=== PATIENT | male | born 1945 | race Caucasian/White ===

== ENCOUNTER 2016-06-03 12:20 | Inpatient (IN) | payer OTHER ==
[~2016-06-03] VITALS: Ht 175.3 cm; Wt 84.1 kg
[~2016-06-03 12:20] MED LIST: ACET-1256 PO; AMLO-114 PO; BND25X PO; CHOL2000 PO; CNT PO; DOXY100C76 PO; FINA5TAB PO; FLM4 PO; FLUO0.0543 TOP; LPT/40 PO; METO25TA3 PO; MOME1AER5 INH; OMEP20CA9 PO; ONDA8TAB7 PO
[2016-06-03] MEDS ORDERED: SODIUM CHLORIDE 0.9% 1000ML 1,000 ML IV STA (12:44)
--- NOTE | 2016-06-03 12:51 | DIAGNOSTIC IMAGING REPORT ---
CHEST ONE VIEW PORTABLE CLINICAL HISTORY: fever COMPARISON STUDY: 12/19/2015 FINDINGS: The cardiac and mediastinal contours remain stable. Slightly prominent markings the right medial lung base remain unchanged. The findings likely reflect atelectasis/scarring. There is no failure. There is no lobar consolidation. There are no pleural effusions.[ IMPRESSION: Stable atelectasis/scarring at the right medial lung base. No acute findings. Electronically signed by: Durga Villa M.D. 06/03/2016 12:50 PM
[2016-06-03] MEDS ORDERED: CYNI1000 INJ (13:10)
[2016-06-03] MEDS ORDERED: IBRU1CAP PO (13:10)
[2016-06-03] MEDS ORDERED: ALBU18002 PO (13:10)
[2016-06-03] MEDS ORDERED: ALBUT/IPRATROP 3MG/0.5MG NEB 3 ML VIAL INH STA (13:16)
[2016-06-03 13:26] LABS: PROTHROMBIN TIME (PATIENT) 10.5 SECONDS (9.0-12.0)
[2016-06-03 13:35] LABS: BUN/CREATININE RATIO 13.3 (10-20); CALCIUM 8.5 mg/dl (8.5-10.1); CREATININE 1.7 mg/dl (0.60-1.40); MAGNESIUM 1.8 mg/dl (1.8-2.4); POTASSIUM 3.2 mmol/L (3.5-5.1)
[2016-06-03 13:43] LABS: HEMATOCRIT 31.1 % (42-52); MEAN CELL VOLUME 102.6 fL (80-100); MEAN CORPUSCULAR HEMOGLOBIN 32.7 pg (25-34); MEAN CORPUSCULAR HGB CONC 31.8 g/dl (32-36); MEAN PLATELET VOLUME 10.4 fL (7.4-10.4); PLATELET COUNT 75 K/uL (130-400); RED BLOOD COUNT 3.03 M/uL (4.7-6.1); WHITE BLOOD COUNT 113.47 K/uL (4.8-10.8)
[2016-06-03 13:45] LABS: CKMB/CK RATIO 0.2 (0-3.0)
[2016-06-03] MEDS ORDERED: LEVAQUIN 750MG / 150ML D5W IV STA (13:58)
[2016-06-03 14:03] LABS: BASO % 0.2 %; BASO ABS # 0.21 K/uL (0-0.2); COMPLETE YES; IG% 0.1 %; LYMPH % 97.5 %; MONO % 0.8 %; NEUT % 1.4 %; PLT ESTIMATE DECREASED; SMUDGE CELLS PRESENT
[2016-06-03] MEDS ORDERED: ONDANSETRON INJ 2 MG/ML 2 ML VIAL IV PRN (14:45)
[2016-06-03] MEDS ORDERED: MAGNESIUM HYDROXIDE SUSP 30 ML UDC PO PRN (14:45)
[2016-06-03] MEDS ORDERED: ALUMINUM/MAGNESIUM/SIMETH (MAALOX MAX) 30 ML UDC PO PRN (14:45)
[2016-06-03] MEDS ORDERED: SODIUM CHLORIDE 0.9% 1000ML 1,000 ML IV SCH (14:45)
[2016-06-03] MEDS ORDERED: ONDANSETRON 8 MG TAB PO PRN (14:45)
[2016-06-03] MEDS: ALBUTEROL HFA 8 GM INHALER INH SCH ×3 (16:00→19:46)
--- NOTE | 2016-06-03 16:34 | HISTORY & PHYSICAL EXAMINATION ---
DATE OF ADMISSION: 06/03/2016 CHIEF COMPLAINT: Fevers and chills. ADMITTING DIAGNOSES: 1. Febrile illness. 2. Positive troponin. HISTORY OF PRESENT ILLNESS: Mr. Garcia is a 71-year-old male who suffers from CLL, typically carrying a white count of 100,000 range. He is taking Imbruvica as a treatment for it. The patient reportedly has been feeling like he had the flu with cough, fever, some vomiting intermittently and not eating or drinking as much as he needs to. His primary care doctor's office this morning had a temperature of 103. He had a negative flu test at that time. The patient presented to the ER. Even though he took Tylenol, he did have an elevation of his temperature. He did have a flu shot additionally this year. He is currently resting comfortably. He has a nonproductive cough in the Emergency Department. He looks like he has got a flu, although he does have as much nasal drainages most. His chest x-ray is unremarkable for infiltrate. Urinalysis/Culture is pending. He was administered levofloxacin. 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 MEDICATIONS: On presentation are Tylenol, Norvasc 5 a day, Lipitor 40 a day, B12 injections once a week, and Benadryl as needed. He previously was on doxycycline daily, Proscar 5 a day, fluocinonide cream 0.05%, Toprol-XL 25 at bedtime, Multi-Melissa once a day, Zofran as needed for nausea, Flomax 0.4 a day, albuterol as needed for breathing, D3 at 2000 units a day, Imbruvica and Prilosec 20. He also takes Refresh Tears as he has had a recent bout of dry eyes. Not mentioned above, the patient also was being worked up for squamous cell carcinoma to his nose, neck and upper back. SOCIAL HISTORY: He does not smoke or drink, never had. He is retired from [employer]. He is accompanied by his . FAMILY HISTORY: For cancer and coronary artery disease. REVIEW OF SYSTEMS: Ten systems are reviewed and are negative except for as cold-like symptoms with nasal congestion, dry nonproductive cough, generalized weakness and arthralgias. PHYSICAL EXAMINATION: GENERAL: He is pleasant. He looks uncomfortable. VITAL SIGNS: Temperature 38.1, pulse 84, respirations 18, BP 131/69, and O2 sat 93% on room air. HEENT: Both his ears are occluded with cerumen. His oropharynx is mildly erythematous without exudates. NECK: With trachea midline. No significant lymphadenopathy. HEART: Regular. There are no significant murmurs. LUNGS: Clear with a coarse cough. No wheezes or focal air losses. ABDOMEN: Normoactive bowel sounds. Soft and nontender. No bruits. EXTREMITIES: Without cyanosis, clubbing or edema. SKIN: With what looked to be abrased scaly areas, 1 on the bridge of his nose and multiple others on his neck and upper back, but there are the sites he has had biopsies and more excisional biopsy done for squamous cell carcinoma. NEUROLOGICALLY: He is awake, alert and appropriate. Cranial nerves II-XII are intact. Equal symmetrical strength and sensation. LABORATORY DATA: White count 113, H\T\H is 9 and 31, and platelet count 75. Potassium is slightly low at 3.2. BUN and creatinine are 23 and 1.7. Troponin slightly elevated at 0.051. Chest x-ray shows no infiltrates. Flu is negative. ASSESSMENT: This is a 71-year-old male here with chronic lymphocytic leukemia, who was essentially immunosuppressed with a febrile illness and a positive troponin. PLAN: For febrile illness, he was already given levofloxacin and blood cultures were obtained. We will continue levofloxacin orally. The patient looks like he has influenza. He has some exposure to influenza. Therefore, we will actually give him the Tamiflu despite having a negative influenza swab because there was a significant false negative rate. With the pancytopenia, this is definitely from his CLL. We will watch his counts. We will not employ DVT prevention because of his thrombocytopenia. Regarding his chronic kidney disease, stage III and hypokalemia, we will hydrate him with saline containing potassium for 1 liter in addition to a liter he received in the ER. We will reassess his volume status in the morning. Regarding his medication for his CLL, we will continue this at this time, but may consider holding it. Somehow, his duration of hospital stay depends on his resolution of his symptoms. DVT prevention is early ambulation at this time. For his cardiovascular disease, we will maintain his Toprol and Norvasc holding his Lipitor at this time. MARION
[2016-06-03 17:00] VITALS: BP 167/80; PULSE 88; TEMP 39.4; O2SAT 96; Ht 175.3 cm; Wt 84.1 kg
[2016-06-03] MEDS ORDERED: ACETAMINOPHEN 500 MG TAB PO PRN (17:45)
[2016-06-03] MEDS ORDERED: ACETAMINOPHEN IV 650 MG in EMPTY BAG 0 ML IV PRN (17:45)
[2016-06-03 18:19] LABS: URINE APPEARANCE CLEAR (CLEAR); URINE BILIRUBIN NEG (NEG); URINE COLOR YELLOW; URINE NITRITE NEG (NEG); URINE SPECIFIC GRAVITY 1.019 (1.000-1.030); UROBILINOGEN NEG (NEG); ZZUR CULT IF INDIC CLEAN CATCH NO
[2016-06-03 18:20] LABS: MANUAL MICROSCOPIC REQUIRED? NO; REVIEW REQ? NO
[2016-06-03] MEDS: ARTIFICIAL TEARS OP SOLN OP SCH ×4 (19:13→23:11)
[2016-06-03] MEDS: POTASSIUM CHLORIDE INJ 40 MEQ in SODIUM CHLORIDE 0.9% 1000ML 1,000 ML IV SCH (19:17)
[2016-06-03 19:44] VITALS: BP 141/79; PULSE 86; TEMP 39.2; O2SAT 93
--- NOTE | 2016-06-03 20:12 | EMERGENCY ROOM VISIT NOTE ---
History Report prepared by Tracey: Ana María Caal Under the Supervision of: Dr. Eddie Gamboa M.D. First contact with patient: 12:35 Chief Complaint: FLU LIKE SX Stated Complaint: COLD, FLU , FEVER History of Present Illness The patient is a 71 year old male who presents to the Emergency Room with complaints of worsening flu-like symptoms for the past 4 days. He has been experiencing a cough and fever. He had vomiting a few days ago that has resolved. The patient rates his pain as a 7/10. He has not been eating or drinking much. He went to his PCP this morning and had a fever with a temperature of 103 at the office. He had a negative flu test at that time. She advised the patient to come to the ED for further evaluation. He took Tylenol 1 hour [employer]. The patient is currently receiving chemo for CLL. He did have a flu shot this year. Source of History: patient, spouse/significant other Onset: 4 days ago Position: other (global) Symptom Intensity: 7/10 Quality: other (flu-like) Timing: worsening Modifying Factors (Relieving): tylenol Associated Symptoms: + cough, + fevers Review of Systems See HPI for pertinent positives & negatives. A total of 10 systems reviewed and were otherwise negative. Past Medical & Surgical Medical Problems: (1) Aneurysm, thoracic (2) BPH (3) CLL (4) DVT (deep venous thrombosis) (5) Febrile illness (6) Hypertension (7) Intracranial hemorrhage (8) Neutropenia (9) Parkinson's disease (10) PE (pulmonary embolism) (11) PNA (pneumonia) (12) Pneumonia (13) Schnitzler syndrome Surgical Problems: (1) History of herniorrhaphy Family History Cancer Heart disease Social History Smoking Status: Never Smoker Drug Use: none Marital Status: Housing Status: lives with family Occupation Status: disabled Current/Historical Medications Scheduled Acetaminophen (Tylenol), 1,000 MG PO Q6HR Albuterol Sulfate (Proair Respiclick), 2 PUFFS PO Q4 Amlodipine (Norvasc), 5 MG PO DAILY Atorvastatin (Lipitor), 40 MG PO DAILY Cholecalciferol (Vitamin D3), 1 CAP PO DAILY Cyanocobalamin (Cyanocobalamin), 1 ML INJ MONTHLY Diphenhydramine Hcl (Benadryl *), 50 MG PO Q6HR Doxycycline Monohydrate (Monodox), 200 MG PO DAILY Finasteride (Proscar), 5 MG PO DAILY Fluocinonide 0.05% (Lidex 0.05%), 1 APPLN TOP BID Ibrutinib (Imbruvica), 3 TABS PO DAILY Metoprolol Succinate (Toprol Xl), 25 MG PO HS Multivitamins/Minerals (Certavite/Antioxidants), 1 TAB PO QAM Omeprazole (Prilosec), 20 MG PO DAILY Tamsulosin Hcl (Flomax *), 0.4 MG PO QPM Scheduled PRN Ondansetron Tab (Zofran), 8 MG PO Q6 PRN for Nausea Allergies Coded Allergies: Dried Fruit (Verified Allergy, Unknown, ., 06/03/16) Physical Exam Vital Signs Date Time Temp Pulse Resp B/P Pulse Ox O2 Delivery O2 Flow Rate FiO2 06/03/16 13:30 94 20 128/79 94 Room Air 06/03/16 12:59 84 06/03/16 12:28 38.1 97 18 131/69 93 Room Air Physical Exam GENERAL: Patient is mildly confused and tired appearing. Weakness with sitting up. HEENT: No acute trauma, normocephalic atraumatic, mucous membranes moist, no nasal congestion, no scleral icterus. NECK: No stridor, no adenopathy, no meningismus, trachea is midline. LUNGS: Productive cough. Junky lung sounds at bases. No dyspnea. HEART: Mildly tachycardic rate and regular rhythm. No murmurs, rubs, gallops appreciated. ABDOMEN: Soft, nontender, bowel sounds positive, no masses appreciated, no peritonitis. BACK: No midline tenderness, no CVA tenderness EXTREMITIES: Normal motion all extremities, no cyanosis, no edema. NEUROLOGIC: Alert and oriented, no acute motor or sensory deficits, no focal weakness, cranial nerves grossly intact. SKIN: No rash, no jaundice, no diaphoresis. Medical Decision & Procedures ER Provider Diagnostic Interpretation: Radiology results as stated below per my review and radiologist interpretation: CHEST ONE VIEW PORTABLE CLINICAL HISTORY: fever COMPARISON STUDY: 12/19/2015 FINDINGS: The cardiac and mediastinal contours remain stable. Slightly prominent markings the right medial lung base remain unchanged. The findings likely reflect atelectasis/scarring. There is no failure. There is no lobar consolidation. There are no pleural effusions.[ IMPRESSION: Stable atelectasis/scarring at the right medial lung base. No acute findings. Electronically signed by: Durga Villa M.D. 06/03/2016 12:50 PM Laboratory Results 06/03/16 13:03 Red Blood Count 3.03, Mean Corpuscular Volume 102.6, Mean Corpuscular Hemoglobin 32.7, Mean Corpuscular Hemoglobin Concent 31.8, Mean Platelet Volume 10.4, Neutrophils (%) (Auto) 1.4, Lymphocytes (%) (Auto) 97.5, Monocytes (%) ( Auto) 0.8, Eosinophils (%) (Auto) 0.0, Basophils (%) (Auto) 0.2, Neutrophils # ( Auto) 1.69, Lymphocytes # (Auto) 110.60, Monocytes # (Auto) 0.89, Eosinophils # (Auto) 0.02, Basophils # (Auto) 0.21 06/03/16 13:03 Test 06/03/16 12:35 06/03/16 13:03 06/03/16 13:14 Influenza Type A Antigen Neg for Influ A (NEG) Influenza Type B Antigen Neg for Influ B (NEG) White Blood Count 113.47 K/uL (4.8-10.8) Red Blood Count 3.03 M/uL (4.7-6.1) Hemoglobin 9.9 g/dL (14.0-18.0) Hematocrit 31.1 % (42-52) Mean Corpuscular Volume 102.6 fL (80-100) Mean Corpuscular Hemoglobin 32.7 pg (25-34) Mean Corpuscular Hemoglobin Concent 31.8 g/dl (32-36) Platelet Count 75 K/uL (130-400) Mean Platelet Volume 10.4 fL (7.4-10.4) Neutrophils (%) (Auto) 1.4 % Lymphocytes (%) (Auto) 97.5 % Monocytes (%) (Auto) 0.8 % Eosinophils (%) (Auto) 0.0 % Basophils (%) (Auto) 0.2 % Neutrophils # (Auto) 1.69 K/uL (1.4-6.5) Lymphocytes # (Auto) 110.60 K/uL (1.2-3.4) Monocytes # (Auto) 0.89 K/uL (0.11-0.59) Eosinophils # (Auto) 0.02 K/uL (0-0.5) Basophils # (Auto) 0.21 K/uL (0-0.2) RDW Standard Deviation 53.4 fL (36.4-46.3) RDW Coefficient of Variation 14.8 % (11.5-14.5) Immature Granulocyte % (Auto) 0.1 % Immature Granulocyte # (Auto) 0.06 K/uL (0.00-0.02) Smudge Cells PRESENT Platelet Estimate DECREASED Prothrombin Time 10.5 SECONDS (9.0-12.0) Prothromb Time International Ratio 1.0 (0.9-1.1) Anion Gap 9.0 mmol/L (3-11) Est Creatinine Clear Calc Drug Dose 41.2 ml/min Estimated GFR () 45.7 Estimated GFR (Non- 39.4 BUN/Creatinine Ratio 13.3 (10-20) Calcium Level 8.5 mg/dl (8.5-10.1) Magnesium Level 1.8 mg/dl (1.8-2.4) Total Bilirubin 1.1 mg/dl (0.2-1) Direct Bilirubin 0.3 mg/dl (0-0.2) Aspartate Amino Transf (AST/SGOT) 31 U/L (15-37) Alanine Aminotransferase (ALT/SGPT) 24 U/L (12-78) Alkaline Phosphatase 61 U/L (45-117) Total Creatine Kinase 389 U/L (39-308) Creatine Kinase MB 0.9 ng/ml (0.5-3.6) Creatine Kinase MB Ratio 0.2 (0-3.0) Total Protein 6.3 gm/dl (6.4-8.2) Albumin 3.2 gm/dl (3.4-5.0) Bedside Lactic Acid Venous 0.82 mmol/L (0.90-1.70) Laboratory results as reviewed by me. Medications Administered Medications (Trade) Dose Ordered Sig/Brian Route Start Time Stop Time Status Last Admin Dose Admin Sodium Chloride (Nss 1000ml) 1,000 ml @ 999 mls/hr Q1H1M STAT IV 06/03/16 12:44 06/03/16 13:44 DC 06/03/16 13:21 999 MLS/HR Albuterol/ Ipratropium (Duoneb) 3 ml NOW STAT INH 06/03/16 13:16 06/03/16 13:17 DC 06/03/16 13:32 3 ML Levofloxacin (Levaquin / D5w) 750 mg NOW STAT IV 06/03/16 13:58 06/03/16 13:59 DC 06/03/16 15:16 750 MG ECG Indication: other Rate (beats per minute): 95 Rhythm: sinus rhythm Findings: PVC, ST depression ED Course 1235: The patient was evaluated in room C5. A complete history and physical exam was performed. 1244: NSS 1000 ml @ 999 mls/hr IV 1316: Duoneb 3 ml INH 1358: Levofloxacin 750 mg IV 1400: I spoke with Dr. Jean. We discussed the patient's results and treatment plan. The patient will be evaluated by the [facility] for further management. 1403: I reassessed the patient at this time. He is resting comfortably. I discussed the results and treatment plan with the patient. I answered all pertaining questions that he had. He expressed understanding and verbalized agreement. Medical Decision Differential: Viral, Pharyngitis, Cellulitis, Pneumonia, Influenza, Meningitis, Sepsis, Bacteremia, UTI/Pyelonephritis, Endocrine, Toxicologic, amongst other pathologies entertained. 71 yr old male arrives with fevers, shortness of breath and productive cough. He is mildly confused but of more concern is he is clearly quite dehydrated. WBC similar to previous outpatient [facility] labs. He does not have meningitis by examination. With cough I feel this is lung related and Levaquin given. He furthermore has an elevated Trop when previously it has been negative thus I feel this will need to be trended out as well. He is stable otherwise. Consults Time Called: 1358 Consulting Physician: Dr. Jean Returned Call: [address] Jean. We discussed the patient's results and treatment plan. The patient will be evaluated by the [facility] for further management. Impression Primary Impression: Fever Additional Impressions: Acute bronchitis, Elevated troponin, CLL Scribe Attestation The scribe's documentation has been prepared under my direction and personally reviewed by me in its entirety. I confirm that the note above accurately reflects all work, treatment, procedures, and medical decision making performed by me. Departure Information Dispostion Being Evaluated By Hospitalist Referrals Leanne Tracy C.R.N.P (PCP) Patient Instructions A Signature Page, My [facility]
[2016-06-03] MEDS: GUAIFENESIN SUGAR FREE 100 MG/5 ML UDC PO PRN (20:16)
[2016-06-03] MEDS: CARBAMIDE PEROXIDE 6.5% 15 ML BTL OT SCH (20:17)
[2016-06-03] MEDS: FLUOCINONIDE 0.05% OINT 15 GM TUBE EXT SCH (20:18)
[2016-06-03] MEDS: ACETAMINOPHEN 500 MG TAB PO SCH (20:19)
[2016-06-03] MEDS: TAMSULOSIN HCL 0.4 MG CAP PO SCH (20:20)
[2016-06-03] MEDS: METOPROLOL SUCC 25MG EXT REL TAB PO SCH (20:20)
[2016-06-03] MEDS: OSELTAMIVIR PHOSPHATE SUSP 30 MG/5 ML UDP PO SCH (20:21)
[2016-06-03 21:18] VITALS: TEMP 37.5
[2016-06-04] VITALS (14 sets, daily range): BP systolic 115–143; BP diastolic 67–83; PULSE 64–82; TEMP 36.4–38.2; O2SAT 91–97
[2016-06-04] MEDS: ALBUTEROL HFA 8 GM INHALER INH SCH ×5 (00:01→20:00)
[2016-06-04] MEDS: GUAIFENESIN SUGAR FREE 100 MG/5 ML UDC PO PRN ×3 (03:08→22:30)
[2016-06-04] MEDS ORDERED: LEVALBUTEROL 1.25MG/0.5ML NEB INH PRN (04:30)
[2016-06-04] MEDS ORDERED: IPRATROPIUM BROMIDE NEB SOLN 0.02% 2.5 ML VIAL INH PRN (04:30)
[2016-06-04] MEDS: POTASSIUM CHLORIDE INJ 40 MEQ in SODIUM CHLORIDE 0.9% 1000ML 1,000 ML IV SCH ×2 (04:52→15:26)
[2016-06-04] MEDS: ARTIFICIAL TEARS OP SOLN OP SCH ×10 (05:48→23:00)
[2016-06-04 06:20] LABS: HEMATOCRIT 29.8 % (42-52); MEAN CELL VOLUME 104.6 fL (80-100); MEAN CORPUSCULAR HEMOGLOBIN 32.6 pg (25-34); MEAN CORPUSCULAR HGB CONC 31.2 g/dl (32-36); MEAN PLATELET VOLUME 10.8 fL (7.4-10.4); PLATELET COUNT 66 K/uL (130-400); RED BLOOD COUNT 2.85 M/uL (4.7-6.1); WHITE BLOOD COUNT 99.17 K/uL (4.8-10.8)
[2016-06-04 06:45] LABS: BUN/CREATININE RATIO 10.7 (10-20); CREATININE 1.6 mg/dl (0.60-1.40); POTASSIUM 3.3 mmol/L (3.5-5.1)
[2016-06-04] MEDS: IPRATROPIUM BROMIDE NEB SOLN 0.02% 2.5 ML VIAL INH SCH ×3 (06:57→19:04)
[2016-06-04] MEDS: LEVALBUTEROL 1.25MG/0.5ML NEB INH SCH ×3 (07:32→19:04)
[2016-06-04] MEDS ORDERED: POTASSIUM CHLORIDE 10 MEQ TABCR PO ONE (08:15)
[2016-06-04] MEDS ORDERED: LEVALBUTEROL/IPRATROPIUM NEB INH SCH (09:00)
[2016-06-04] MEDS: CARBAMIDE PEROXIDE 6.5% 15 ML BTL OT SCH ×2 (09:12→20:52)
[2016-06-04] MEDS: FINASTERIDE 5 MG TAB PO SCH (09:13)
[2016-06-04] MEDS: PANTOprazole SOD 40 MG TAB PO SCH (09:13)
[2016-06-04] MEDS: OSELTAMIVIR PHOSPHATE SUSP 30 MG/5 ML UDP PO SCH ×2 (09:13→20:54)
[2016-06-04] MEDS: AMLODIPINE BESYLATE 5 MG TAB PO SCH (09:13)
[2016-06-04] MEDS: FLUOCINONIDE 0.05% OINT 15 GM TUBE EXT SCH ×2 (09:13→20:54)
[2016-06-04] MEDS ORDERED: NURSING VERBAL MED ORDER ONE (09:15)
[2016-06-04] MEDS ORDERED: METHYLPREDNISOLONE IV 60 MG in SYRINGE 0 ML IV ONE (09:15)
[2016-06-04] MEDS: ACETAMINOPHEN 500 MG TAB PO SCH ×2 (09:16→20:53)
[2016-06-04] MEDS ORDERED: GUAIFENESIN 600 MG TABCR PO ONE (09:30)
--- NOTE | 2016-06-04 10:44 | DIAGNOSTIC IMAGING REPORT ---
CHEST ONE VIEW PORTABLE CLINICAL HISTORY: Congestive failure COMPARISON STUDY: 06/03/2016 FINDINGS: The cardiac and mediastinal contours are normal. There is no evidence of focal pulmonary consolidation. There is no evidence of failure. No pleural effusions are visualized.[ There are minimal subsegmental atelectatic changes at the left lung base. IMPRESSION: No active disease in the chest. Electronically signed by: Durga Villa M.D. 06/04/2016 10:43 AM
[2016-06-04] MEDS: LEVOFLOXACIN 500 MG TAB PO SCH (11:16)
--- NOTE | 2016-06-04 14:56 | Progress Note ---
Subjective Subjective Date of Service: Jun 04, 2016. Pt evaluation today including: conversation w/ patient, physical exam, chart review, review of studies, review of inpatient medication list Problem List Medical Problems: (1) Acute bronchitis Status: Acute (2) Chest pain Status: Acute (3) Elevated d-dimer Status: Acute (4) Elevated troponin Status: Acute (5) Fever Status: Acute Review of Systems Constitutional: + chills ENT: No hearing loss Respiratory: No cough Abdomen: No pain Musculoskeletal: No joint pain Male : No urinary frequency Neurologic: No memory loss Psychiatric: No depression symptoms Endo: No fatigue Physical Exam Vital Signs Vital Signs Past 24 Hours: Date Time Temp Pulse Resp B/P Pulse Ox O2 Delivery O2 Flow Rate FiO2 06/04/16 14:17 80 18 96 Room Air 06/04/16 12:00 Nasal Cannula 2.0 06/04/16 11:12 36.9 64 19 116/68 93 Room Air 06/04/16 08:00 Nasal Cannula 2.0 06/04/16 07:40 37.3 81 22 118/67 95 06/04/16 06:57 82 18 93 Room Air 06/04/16 06:19 37.6 06/04/16 05:30 38.2 06/04/16 04:29 80 18 93 Room Air 06/04/16 03:33 37.3 75 18 130/83 95 Room Air 06/04/16 00:04 36.6 80 18 133/74 97 Nasal Cannula 06/04/16 00:02 Nasal Cannula 2.0 06/03/16 21:18 37.5 06/03/16 20:04 Nasal Cannula 2.0 06/03/16 19:44 39.2 86 18 141/79 93 Nasal Cannula 2.0 06/03/16 17:00 96 Nasal Cannula 2.0 06/03/16 17:00 39.4 88 26 167/80 06/03/16 15:14 81 20 147/77 94 Room Air Physical Exam: General Appearance: WD/WN, no apparent distress, + pertinent finding (clammy) Eyes: bilateral eyes normal inspection ENT: hearing grossly normal, pharynx normal Neck: supple Respiratory/Chest: chest non-tender, + rales Cardiovascular: no edema, no gallop Abdomen: soft Extremities: normal range of motion, normal inspection Neurologic/Psychiatric: alert Medications Medications: Current Inpatient Medications Medications (Trade) Dose Ordered Sig/Brian Route Start Time Stop Time Status Last Admin Dose Admin Acetaminophen (Tylenol Tab) 1,000 mg BID PO 06/03/16 21:00 07/03/16 20:59 06/04/16 09:16 1,000 MG Amlodipine Besylate (Norvasc Tab) 5 mg DAILY PO 06/04/16 09:00 07/04/16 08:59 06/04/16 09:13 5 MG Diphenhydramine HCl (Benadryl Cap) 50 mg Q6 PRN PO 06/03/16 14:45 07/03/16 14:44 Finasteride (Proscar Tab) 5 mg DAILY PO 06/04/16 09:00 07/04/16 08:59 06/04/16 09:13 5 MG Fluocinonide (Lidex Oint) 1 appln BID EXT 06/03/16 21:00 07/03/16 20:59 06/04/16 09:13 1 APPLN Metoprolol Succinate (Toprol Xl Tab) 25 mg HS PO 06/03/16 21:00 07/03/16 20:59 06/03/16 20:20 25 MG Ondansetron HCl (Zofran Tab) 8 mg Q6 PRN PO 06/03/16 14:45 07/03/16 14:44 Tamsulosin HCl (Flomax Cap) 0.4 mg QPM PO 06/03/16 21:00 07/03/16 20:59 06/03/16 20:20 0.4 MG Albuterol (Ventolin Hfa Inhaler) 2 puffs Q4 INH 06/03/16 16:00 07/03/16 15:59 06/04/16 03:08 2 PUFFS Pantoprazole Sodium (Protonix Tab) 40 mg QAM PO 06/04/16 09:00 07/04/16 08:59 06/04/16 09:13 40 MG Al Hydrox/Mg Hydrox/Simethicone (Maalox Max Susp) 15 ml Q4H PRN PO 06/03/16 14:45 07/03/16 14:44 Magnesium Hydroxide (Milk Of Magnesia Susp) 30 ml Q12H PRN PO 06/03/16 14:45 07/03/16 14:44 Ondansetron HCl (Zofran Inj) 4 mg Q6H PRN IV 06/03/16 14:45 07/03/16 14:44 Oseltamivir Phosphate (Tamiflu Susp) 30 mg BID PO 06/03/16 21:00 06/08/16 20:59 06/04/16 09:13 30 MG Levofloxacin (Levaquin Tab) 500 mg DAILY@11 PO 06/04/16 11:00 06/13/16 10:59 06/04/16 11:16 500 MG Guaifenesin (Robitussin Sugar Free Syrup) 100 mg Q6H PRN PO 06/03/16 15:15 07/03/16 15:14 06/04/16 09:12 100 MG Artificial Tears (Artificial Tears) 4 drops [id number] OP 06/03/16 19:00 07/03/16 18:59 06/04/16 11:16 4 DROPS Carbamide Peroxide 4 drops 4 drops BID OT 06/03/16 21:00 06/07/16 20:59 06/04/16 09:12 4 DROPS Potassium Chloride/Sodium Chloride (KCl Inj/Nss 1000ml) 1,020 ml @ 100 mls/hr [id number] IV 06/03/16 19:00 07/03/16 18:59 06/04/16 04:52 100 MLS/HR Acetaminophen 1000 mg 1,000 mg Q6H PRN PO 06/03/16 17:45 07/03/16 17:44 Acetaminophen/ Empty Bag (Ofirmev IV/ Empty Iv Bag 100ml) 65 ml @ 260 mls/hr Q6H PRN IV 06/03/16 17:45 07/03/16 17:44 06/04/16 05:35 260 MLS/HR Ipratropium [place] (Atrovent 0.02% 0.5MG/2.5ML Neb) 0.5 mg Q6R INH 06/04/16 09:00 07/04/16 08:59 06/04/16 14:17 0.5 MG Levalbuterol (Xopenex 1.25MG/ 0.5ML Neb) 1.25 mg Q6R INH 06/04/16 09:00 07/04/16 08:59 06/04/16 14:17 1.25 MG Ipratropium [place] (Atrovent 0.02% 0.5MG/2.5ML Neb) 0.5 mg Q2H PRN INH 06/04/16 04:30 07/04/16 04:29 06/04/16 04:30 0.5 MG Levalbuterol (Xopenex 1.25MG/ 0.5ML Neb) 1.25 mg Q2H PRN INH 06/04/16 04:30 07/04/16 04:29 06/04/16 04:30 1.25 MG Guaifenesin (Mucinex Contr Rel Tab) 600 mg Q12@0900,2100 PO 06/04/16 21:00 07/04/16 20:59 Laboratory Data Labs: Last 24 Hours Test 06/03/16 17:55 06/03/16 19:57 06/04/16 05:15 Urine Color YELLOW Urine Appearance CLEAR Urine pH 6.0 Urine Specific Cecil 1.019 Urine Protein 2+ Urine Glucose (UA) NEG Urine Ketones TRACE Urine Occult Blood 3+ Urine Nitrite NEG Urine Bilirubin NEG Urine Urobilinogen NEG Urine Leukocyte Esterase NEG Urine WBC (Auto) 5-10 /hpf Urine RBC (Auto) >30 /hpf Urine Hyaline Casts (Auto) 1-5 /lpf Urine Epithelial Cells (Auto) 10-20 /lpf Urine Bacteria (Auto) NEG Troponin I 0.066 ng/ml 0.046 ng/ml White Blood Count 99.17 K/uL Red Blood Count 2.85 M/uL Hemoglobin 9.3 g/dL Hematocrit 29.8 % Mean Corpuscular Volume 104.6 fL Mean Corpuscular Hemoglobin 32.6 pg Mean Corpuscular Hemoglobin Concent 31.2 g/dl RDW Standard Deviation 56.4 fL RDW Coefficient of Variation 15.1 % Platelet Count 66 K/uL Mean Platelet Volume 10.8 fL Sodium Level 141 mmol/L Potassium Level 3.3 mmol/L Chloride Level 110 mmol/L Carbon Dioxide Level 22 mmol/L Anion Gap 9.0 mmol/L Blood Urea Nitrogen 17 mg/dl Creatinine 1.60 mg/dl Est Creatinine Clear Calc Drug Dose 41.8 ml/min Estimated GFR () 49.2 Estimated GFR (Non- 42.4 BUN/Creatinine Ratio 10.7 Random Glucose 100 mg/dl Calcium Level 8.0 mg/dl Assessment and Plan This is a 71-year-old male here with chronic lymphocytic leukemia, who was essentially immunosuppressed with a febrile illness and a positive troponin. febrile illness, he was already given levofloxacin and blood cultures were obtained. We will continue levofloxacin orally until cultures are back. CXR is normal The patient looks like he has influenza. He has some exposure to influenza. Therefore, we will actually give him the Tamiflu despite having a negative influenza swab because there was a significant false negative rate. With the pancytopenia, this is definitely from his CLL. We will watch his counts. We will not employ DVT prevention because of his thrombocytopenia. consult Dr Garcia Regarding his chronic kidney disease, stage III and hypokalemia, cont IV hydration HX CLL, will hold outpatient regimen and will d/w oncologist DVT prevention is early ambulation at this time. For his cardiovascular disease, continue Toprol and Norvasc holding his Lipitor at this time. FULL Code
[2016-06-04] MEDS: IBRUTINIB 140 MG CAP PO SCH (15:01)
[2016-06-04] MEDS: TAMSULOSIN HCL 0.4 MG CAP PO SCH (20:52)
[2016-06-04] MEDS: GUAIFENESIN 600 MG TABCR PO SCH (20:53)
[2016-06-04] MEDS: METOPROLOL SUCC 25MG EXT REL TAB PO SCH (20:57)
[2016-06-05] VITALS (12 sets, daily range): BP systolic 128–158; BP diastolic 68–84; PULSE 65–83; TEMP 36.3–36.7; O2SAT 93–98
[2016-06-05] MEDS: POTASSIUM CHLORIDE INJ 40 MEQ in SODIUM CHLORIDE 0.9% 1000ML 1,000 ML IV SCH (02:02)
[2016-06-05] MEDS: LEVALBUTEROL 1.25MG/0.5ML NEB INH SCH ×4 (02:14→19:42)
[2016-06-05] MEDS: IPRATROPIUM BROMIDE NEB SOLN 0.02% 2.5 ML VIAL INH SCH ×4 (02:14→19:42)
[2016-06-05] MEDS: ALBUTEROL HFA 8 GM INHALER INH SCH ×6 (04:00→20:00)
[2016-06-05 06:38] LABS: BUN/CREATININE RATIO 12.6 (10-20); CALCIUM 7.8 mg/dl (8.5-10.1); CREATININE 1.3 mg/dl (0.60-1.40); POTASSIUM 4.6 mmol/L (3.5-5.1)
[2016-06-05] MEDS: FINASTERIDE 5 MG TAB PO SCH (08:31)
[2016-06-05] MEDS: ACETAMINOPHEN 500 MG TAB PO SCH ×2 (08:32→20:23)
[2016-06-05] MEDS: PANTOprazole SOD 40 MG TAB PO SCH (08:32)
[2016-06-05] MEDS: AMLODIPINE BESYLATE 5 MG TAB PO SCH (08:32)
[2016-06-05] MEDS: FLUOCINONIDE 0.05% OINT 15 GM TUBE EXT SCH ×2 (08:32→20:22)
[2016-06-05] MEDS: GUAIFENESIN 600 MG TABCR PO SCH ×2 (08:33→20:23)
[2016-06-05] MEDS: CARBAMIDE PEROXIDE 6.5% 15 ML BTL OT SCH ×2 (08:33→22:05)
[2016-06-05] MEDS: IBRUTINIB 140 MG CAP PO SCH ×2 (08:33→09:00)
[2016-06-05] MEDS: ARTIFICIAL TEARS OP SOLN OP SCH ×10 (08:33→23:00)
[2016-06-05] MEDS: OSELTAMIVIR PHOSPHATE SUSP 30 MG/5 ML UDP PO SCH ×2 (08:34→08:38)
[2016-06-05 08:58] LABS: HEMATOCRIT 27.9 % (42-52); MEAN CELL VOLUME 103.3 fL (80-100); MEAN CORPUSCULAR HEMOGLOBIN 32.2 pg (25-34); MEAN CORPUSCULAR HGB CONC 31.2 g/dl (32-36); MEAN PLATELET VOLUME 11.5 fL (7.4-10.4); PLATELET COUNT 67 K/uL (130-400); WHITE BLOOD COUNT 96.66 K/uL (4.8-10.8)
[2016-06-05 09:32] LABS: BASO % 0.2 %; BASO ABS # 0.15 K/uL (0-0.2); COMPLETE YES; ECHINOCYTES 1+; LYMPH % 97.1 %; MONO % 0.7 %; SMUDGE CELLS PRESENT
[2016-06-05] MEDS ORDERED: NURSING VERBAL MED ORDER ONE ×2 (11:15→19:00)
[2016-06-05] MEDS: LEVOFLOXACIN 500 MG TAB PO SCH (11:17)
--- NOTE | 2016-06-05 12:53 | Progress Note ---
Subjective Subjective Date of Service: Jun 05, 2016. Pt evaluation today including: conversation w/ patient, physical exam, chart review, review of studies, review of inpatient medication list Notes: patient feels improved Problem List Medical Problems: (1) Acute bronchitis Status: Acute (2) Chest pain Status: Acute (3) Elevated d-dimer Status: Acute (4) Elevated troponin Status: Acute (5) Fever Status: Acute Review of Systems Constitutional: No fever Eyes: No worsening of vision ENT: No hearing loss Respiratory: No cough Cardiac: No chest pain Abdomen: No pain Male : No dysuria Neurologic: No memory loss Psychiatric: No depression symptoms Endo: + fatigue Physical Exam Vital Signs Vital Signs Past 24 Hours: Date Time Temp Pulse Resp B/P Pulse Ox O2 Delivery O2 Flow Rate FiO2 06/05/16 11:38 36.3 71 18 128/72 96 Room Air 06/05/16 08:00 Room Air 06/05/16 07:39 36.5 67 20 155/82 97 Room Air 06/05/16 07:10 66 18 97 Room Air 06/05/16 04:00 36.7 80 139/77 96 Room Air 06/05/16 04:00 96 Room Air 06/05/16 02:14 65 18 95 Room Air 06/05/16 00:00 93 Room Air 06/04/16 23:30 36.9 74 18 115/68 93 Room Air 06/04/16 20:00 92 Room Air 06/04/16 19:59 37.0 71 20 143/81 92 Room Air 06/04/16 19:08 71 18 91 Room Air 06/04/16 16:00 Room Air 06/04/16 15:42 36.4 80 20 123/69 97 Room Air 06/04/16 14:17 80 18 96 Room Air Physical Exam: General Appearance: WD/WN, no apparent distress Eyes: bilateral eyes normal inspection ENT: hearing grossly normal, pharynx normal Neck: supple, no JVD Respiratory/Chest: chest non-tender, normal breath sounds Cardiovascular: regular rate, rhythm, no gallop Abdomen: soft Extremities: non-tender Neurologic/Psychiatric: alert Medications Medications: Current Inpatient Medications Medications (Trade) Dose Ordered Sig/Brian Route Start Time Stop Time Status Last Admin Dose Admin Acetaminophen (Tylenol Tab) 1,000 mg BID PO 06/03/16 21:00 07/03/16 20:59 1/1/17 08:32 1,000 MG Amlodipine Besylate (Norvasc Tab) 5 mg DAILY PO 06/04/16 09:00 07/04/16 08:59 06/05/16 08:32 5 MG Diphenhydramine HCl (Benadryl Cap) 50 mg Q6 PRN PO 06/03/16 14:45 07/03/16 14:44 06/04/16 21:03 50 MG Finasteride (Proscar Tab) 5 mg DAILY PO 06/04/16 09:00 07/04/16 08:59 06/05/16 08:31 5 MG Fluocinonide (Lidex Oint) 1 appln BID EXT 06/03/16 21:00 07/03/16 20:59 06/05/16 08:32 1 APPLN Metoprolol Succinate (Toprol Xl Tab) 25 mg HS PO 06/03/16 21:00 07/03/16 20:59 06/04/16 20:57 25 MG Ondansetron HCl (Zofran Tab) 8 mg Q6 PRN PO 06/03/16 14:45 07/03/16 14:44 Tamsulosin HCl (Flomax Cap) 0.4 mg QPM PO 06/03/16 21:00 07/03/16 20:59 06/04/16 20:52 0.4 MG Albuterol (Ventolin Hfa Inhaler) 2 puffs Q4 INH 06/03/16 16:00 07/03/16 15:59 06/04/16 12:10 2 PUFFS Pantoprazole Sodium (Protonix Tab) 40 mg QAM PO 06/04/16 09:00 07/04/16 08:59 06/05/16 08:32 40 MG Al Hydrox/Mg Hydrox/Simethicone (Maalox Max Susp) 15 ml Q4H PRN PO 06/03/16 14:45 07/03/16 14:44 Magnesium Hydroxide (Milk Of Magnesia Susp) 30 ml Q12H PRN PO 06/03/16 14:45 07/03/16 14:44 Ondansetron HCl (Zofran Inj) 4 mg Q6H PRN IV 06/03/16 14:45 07/03/16 14:44 Levofloxacin (Levaquin Tab) 500 mg DAILY@11 PO 06/04/16 11:00 06/13/16 10:59 06/05/16 11:17 500 MG Guaifenesin (Robitussin Sugar Free Syrup) 100 mg Q6H PRN PO 06/03/16 15:15 07/03/16 15:14 06/04/16 22:30 100 MG Artificial Tears (Artificial Tears) 4 drops 5XDQ4H OP 06/03/16 19:00 07/03/16 18:59 06/05/16 11:17 4 DROPS Carbamide Peroxide (Earwax Removal Soln) 4 drops BID OT 06/03/16 21:00 06/07/16 20:59 06/05/16 08:33 4 DROPS Acetaminophen 1000 mg 1,000 mg Q6H PRN PO 06/03/16 17:45 07/03/16 17:44 Acetaminophen/ Empty Bag (Ofirmev IV/ Empty Iv Bag 100ml) 65 ml @ 260 mls/hr Q6H PRN IV 06/03/16 17:45 07/03/16 17:44 06/04/16 05:35 260 MLS/HR Ipratropium [place] (Atrovent 0.02% 0.5MG/2.5ML Neb) 0.5 mg Q6R INH 06/04/16 09:00 07/04/16 08:59 06/05/16 07:10 0.5 MG Levalbuterol (Xopenex 1.25MG/ 0.5ML Neb) 1.25 mg Q6R INH 06/04/16 09:00 07/04/16 08:59 06/05/16 07:10 1.25 MG Ipratropium [place] (Atrovent 0.02% 0.5MG/2.5ML Neb) 0.5 mg Q2H PRN INH 06/04/16 04:30 07/04/16 04:29 06/04/16 04:30 0.5 MG Levalbuterol (Xopenex 1.25MG/ 0.5ML Neb) 1.25 mg Q2H PRN INH 06/04/16 04:30 07/04/16 04:29 06/04/16 04:30 1.25 MG Guaifenesin (Mucinex Contr Rel Tab) 600 mg Q12@0900,2100 PO 06/04/16 21:00 07/04/16 20:59 06/05/16 08:33 600 MG Laboratory Data Labs: Last 24 Hours Test 06/05/16 05:40 White Blood Count 96.66 K/uL Red Blood Count 2.70 M/uL Hemoglobin 8.7 g/dL Hematocrit 27.9 % Mean Corpuscular Volume 103.3 fL Mean Corpuscular Hemoglobin 32.2 pg Mean Corpuscular Hemoglobin Concent 31.2 g/dl Platelet Count 67 K/uL Mean Platelet Volume 11.5 fL Neutrophils (%) (Auto) 2.0 % Lymphocytes (%) (Auto) 97.1 % Monocytes (%) (Auto) 0.7 % Eosinophils (%) (Auto) 0.0 % Basophils (%) (Auto) 0.2 % Neutrophils # (Auto) 1.95 K/uL Lymphocytes # (Auto) 93.90 K/uL Monocytes # (Auto) 0.66 K/uL Eosinophils # (Auto) 0.00 K/uL Basophils # (Auto) 0.15 K/uL RDW Standard Deviation 55.0 fL RDW Coefficient of Variation 15.1 % Immature Granulocyte % (Auto) 0.0 % Immature Granulocyte # (Auto) 0.00 K/uL Smudge Cells PRESENT Echinocytes 1+ Sodium Level 142 mmol/L Potassium Level 4.6 mmol/L Chloride Level 115 mmol/L Carbon Dioxide Level 20 mmol/L Anion Gap 7.0 mmol/L Blood Urea Nitrogen 16 mg/dl Creatinine 1.30 mg/dl Est Creatinine Clear Calc Drug Dose 55.7 ml/min Estimated GFR () 63.2 Estimated GFR (Non- 54.5 BUN/Creatinine Ratio 12.6 Random Glucose 123 mg/dl Calcium Level 7.8 mg/dl Assessment and Plan This is a 71-year-old male here with chronic lymphocytic leukemia, who was essentially immunosuppressed with a febrile illness and a positive troponin. febrile illness, no more fever >24 h, he was already given levofloxacin and blood cultures were obtained. continue levofloxacin orally until all cultures are back. CXR is normal stop Tamiflu With the pancytopenia, this is definitely from his CLL. We will watch his counts. Do not employ DVT prevention because of his thrombocytopenia. consult Dr Garcia Regarding his chronic kidney disease, stage III and hypokalemia, creat improved with IVF, creat 1.3 stop IV hydration elevated troponins, not trending up, demand ischemia likely sec to above HX CLL, will hold outpatient regimen and will d/w oncologist DVT prevention is early ambulation at this time. For his cardiovascular disease, continue Toprol and Norvasc holding his Lipitor at this time. FULL Code
--- NOTE | 2016-06-05 14:31 | Medical Consult ---
Consultation Date of Consultation: Jun 05, 2016. Attending Physician: Gavin Griffin MD Reason for Consultation: CLL, elevated WBC History of Present Illness 71 year old male with history of CLL. In the distant past he was treated with leukeran and prednisone, then was followed expectantly. His primary oncologist is Dr Garcia. He was noted to have worsening anemia and thrombocytopenia and saw Dr Garcia in 12/2015. He was started on ibrutinib 420mg daily for treatment of his CLL since 01/2016 due to the worsening anemia and thrombocytopenia. He is now admitted with cough productive of white phlegm and fever and chills at home. Patient states that he had that for several days before going to his his PCP on Monday. He was found to have temp of 103 and sent to ER for further workup. He states that at home he was not having any shortness of breath. He states that the night he was admitted when he was put on supplemental O2 via NC he felt uncomfortable as if he could not breathe and he took it off and felt better right away. He denies any shortness of breath or TURNER. He denies any bleeding or brusing symptoms. He states that he is still having significant cough but no fever today. No hemoptysis. No bleeding or bruising symptoms. He also has decreased appetite. He also had nausea and states that he had one episode of vomiting at home. +fatigue. +early satiety. He states that he had been urinating less at home and had suprapubic discomfort. Denies any hematuria or dysuria. He now has a rodríguez catheter. +sick contact - He states that his has a URI and her sister also had a URI and he was in contact with them. Past Medical/Surgical History Medical Problems: (1) Acute bronchitis Status: Acute (2) Chest pain Status: Acute (3) Elevated d-dimer Status: Acute (4) Elevated troponin Status: Acute (5) Fever Status: Acute Family History Cancer Heart disease Social History Smoking Status: Never Smoker Drug Use: none Marital Status: Housing Status: lives with family Occupation Status: disabled Allergies Coded Allergies: Dried Fruit (Verified Allergy, Unknown, ., 06/03/16) Current Inpatient Medications Current Inpatient Medications Medications (Trade) Dose Ordered Sig/Brian Route Start Time Stop Time Status Last Admin Dose Admin Acetaminophen (Tylenol Tab) 1,000 mg BID PO 06/03/16 21:00 07/03/16 20:59 06/05/16 08:32 1,000 MG Amlodipine Besylate (Norvasc Tab) 5 mg DAILY PO 06/04/16 09:00 07/04/16 08:59 06/05/16 08:32 5 MG Diphenhydramine HCl (Benadryl Cap) 50 mg Q6 PRN PO 06/03/16 14:45 07/03/16 14:44 06/04/16 21:03 50 MG Finasteride (Proscar Tab) 5 mg DAILY PO 06/04/16 09:00 07/04/16 08:59 06/05/16 08:31 5 MG Fluocinonide (Lidex Oint) 1 appln BID EXT 06/03/16 21:00 07/03/16 20:59 06/05/16 08:32 1 APPLN Metoprolol Succinate (Toprol Xl Tab) 25 mg HS PO 06/03/16 21:00 07/03/16 20:59 06/04/16 20:57 25 MG Ondansetron HCl (Zofran Tab) 8 mg Q6 PRN PO 06/03/16 14:45 07/03/16 14:44 Tamsulosin HCl (Flomax Cap) 0.4 mg QPM PO 06/03/16 21:00 07/03/16 20:59 06/04/16 20:52 0.4 MG Albuterol (Ventolin Hfa Inhaler) 2 puffs Q4 INH 06/03/16 16:00 07/03/16 15:59 06/04/16 12:10 2 PUFFS Pantoprazole Sodium (Protonix Tab) 40 mg QAM PO 06/04/16 09:00 07/04/16 08:59 06/05/16 08:32 40 MG Al Hydrox/Mg Hydrox/Simethicone (Maalox Max Susp) 15 ml Q4H PRN PO 06/03/16 14:45 07/03/16 14:44 Magnesium Hydroxide (Milk Of Magnesia Susp) 30 ml Q12H PRN PO 06/03/16 14:45 07/03/16 14:44 Ondansetron HCl (Zofran Inj) 4 mg Q6H PRN IV 06/03/16 14:45 07/03/16 14:44 Levofloxacin (Levaquin Tab) 500 mg DAILY@11 PO 06/04/16 11:00 06/13/16 10:59 06/05/16 11:17 500 MG Guaifenesin (Robitussin Sugar Free Syrup) 100 mg Q6H PRN PO 06/03/16 15:15 07/03/16 15:14 06/04/16 22:30 100 MG Artificial Tears (Artificial Tears) 4 drops 5XDQ4H OP 06/03/16 19:00 07/03/16 18:59 06/05/16 11:17 4 DROPS Carbamide Peroxide (Earwax Removal Soln) 4 drops BID OT 06/03/16 21:00 06/07/16 20:59 06/05/16 08:33 4 DROPS Acetaminophen 1000 mg 1,000 mg Q6H PRN PO 06/03/16 17:45 07/03/16 17:44 Acetaminophen/ Empty Bag (Ofirmev IV/ Empty Iv Bag 100ml) 65 ml @ 260 mls/hr Q6H PRN IV 06/03/16 17:45 07/03/16 17:44 06/04/16 05:35 260 MLS/HR Ipratropium [place] (Atrovent 0.02% 0.5MG/2.5ML Neb) 0.5 mg Q6R INH 06/04/16 09:00 07/04/16 08:59 06/05/16 07:10 0.5 MG Levalbuterol (Xopenex 1.25MG/ 0.5ML Neb) 1.25 mg Q6R INH 06/04/16 09:00 07/04/16 08:59 06/05/16 07:10 1.25 MG Ipratropium [place] (Atrovent 0.02% 0.5MG/2.5ML Neb) 0.5 mg Q2H PRN INH 06/04/16 04:30 07/04/16 04:29 06/04/16 04:30 0.5 MG Levalbuterol (Xopenex 1.25MG/ 0.5ML Neb) 1.25 mg Q2H PRN INH 06/04/16 04:30 07/04/16 04:29 06/04/16 04:30 1.25 MG Guaifenesin (Mucinex Contr Rel Tab) 600 mg Q12@0900,2100 PO 06/04/16 21:00 07/04/16 20:59 06/05/16 08:33 600 MG Review of Systems Constitutional: + chills (at home), + fatigue, + fever (now afebrile), No sweats ENT: + problem reported (states has ear problem for several months - clogged at times ), No nasal symptoms, No sore throat, No unusual epistaxis Respiratory: + cough, + sputum (white), No wheezing Cardiovascular: No chest pain, No edema, No orthopnea, No palpitations Abdomen: No GI bleeding, No diarrhea, No nausea, No pain, No vomiting Musculoskeletal: No calf pain, No joint pain, No swelling Genitourinary - Male: + urinary retention (has rodríguez catherter), No dysuria, No hematuria Neurologic: No numbness/tingling, No vertigo, No weakness Endocrine: + fatigue, No excessive thirst Hematologic / Lymphatic: No night sweats, No swollen lymph nodes Integumentary: + new/changing skin lesions (on his nose, states that he is following with water chaser), No rash Physical Exam Date Time Temp Pulse Resp B/P Pulse Ox O2 Delivery O2 Flow Rate FiO2 06/05/16 12:00 Room Air 06/05/16 11:38 36.3 71 18 128/72 96 Room Air 06/05/16 08:00 Room Air 06/05/16 07:39 36.5 67 20 155/82 97 Room Air 06/05/16 07:10 66 18 97 Room Air 06/05/16 04:00 36.7 80 139/77 96 Room Air 06/05/16 04:00 96 Room Air 06/05/16 02:14 65 18 95 Room Air 06/05/16 00:00 93 Room Air 06/04/16 23:30 36.9 74 18 115/68 93 Room Air 06/04/16 20:00 92 Room Air 06/04/16 19:59 37.0 71 20 143/81 92 Room Air 06/04/16 19:08 71 18 91 Room Air 06/04/16 16:00 Room Air 06/04/16 15:42 36.4 80 20 123/69 97 Room Air 12/31/16 14:17 80 18 96 Room Air General Appearance: WD/WN, no apparent distress Head: normocephalic, atraumatic Eyes: sclerae normal ENT: pharynx normal Neck: supple, no adenopathy, no JVD Respiratory/Chest: chest non-tender, lungs clear, normal breath sounds, no respiratory distress Cardiovascular: regular rate, rhythm, no edema, no murmur Abdomen/GI: normal bowel sounds, non tender, soft Genitourinary - Male: + pertinent finding (+rodríguez catheter) Extremities/Musculoskelatal: no calf tenderness, no pedal edema, non-tender Neurologic/Psych: no motor/sensory deficits (grossly), alert, normal mood/ affect, oriented x 3 Skin: warm/dry Lymphatic: no adenopathy Laboratory Results Last 24 Hours Test 06/05/16 05:40 White Blood Count 96.66 K/uL Red Blood Count 2.70 M/uL Hemoglobin 8.7 g/dL Hematocrit 27.9 % Mean Corpuscular Volume 103.3 fL Mean Corpuscular Hemoglobin 32.2 pg Mean Corpuscular Hemoglobin Concent 31.2 g/dl Platelet Count 67 K/uL Mean Platelet Volume 11.5 fL Neutrophils (%) (Auto) 2.0 % Lymphocytes (%) (Auto) 97.1 % Monocytes (%) (Auto) 0.7 % Eosinophils (%) (Auto) 0.0 % Basophils (%) (Auto) 0.2 % Neutrophils # (Auto) 1.95 K/uL Lymphocytes # (Auto) 93.90 K/uL Monocytes # (Auto) 0.66 K/uL Eosinophils # (Auto) 0.00 K/uL Basophils # (Auto) 0.15 K/uL RDW Standard Deviation 55.0 fL RDW Coefficient of Variation 15.1 % Immature Granulocyte % (Auto) 0.0 % Immature Granulocyte # (Auto) 0.00 K/uL Smudge Cells PRESENT Echinocytes 1+ Sodium Level 142 mmol/L Potassium Level 4.6 mmol/L Chloride Level 115 mmol/L Carbon Dioxide Level 20 mmol/L Anion Gap 7.0 mmol/L Blood Urea Nitrogen 16 mg/dl Creatinine 1.30 mg/dl Est Creatinine Clear Calc Drug Dose 55.7 ml/min Estimated GFR () 63.2 Estimated GFR (Non- 54.5 BUN/Creatinine Ratio 12.6 Random Glucose 123 mg/dl Calcium Level 7.8 mg/dl CXR: No acute disease in chest Assessment & Plan 71 year old male with history of CLL on ibrutinib since 01/2016. We are consulted for his elevated WBC/lymphocytosis. He has chronic lymphocytosis due to his CLL and his WBC has been elevated to over 100,000 since he has been on ibrutinib. The leukocytosis is expected on ibrutinib. However, his anemia and thrombocytopenia are worse here than on his outpatient labs. Recommend check direct Oniel, LDH, haptoglobin, retic count and iron tibc ferritin B12 and folate to evaluate his anemia and thrombocytopenia. Persistent cough - recommend Check CT scan of the check and abdomen - evaluate for any pneumonia or lymphadenopathy and follow up his splenomegaly Hold ibrutinib in the acute setting until infection is ruled out. Recommend that he follow up with Dr Garcia as soon as possible upon discharge regarding management of his CLL and any dose adjustment of the ibrutinib if his platelet count and anemia continue to worsen. Thank you for this consult
[2016-06-05] MEDS ORDERED: IBRUTINIB 140 MG CAP PO SCH (17:00)
[2016-06-05] MEDS: GUAIFENESIN SUGAR FREE 100 MG/5 ML UDC PO PRN (18:12)
--- NOTE | 2016-06-05 19:53 | DIAGNOSTIC IMAGING REPORT ---
CT SCAN OF THE CHEST, ABDOMEN, AND PELVIS WITHOUT IV CONTRAST CLINICAL HISTORY: Infection. Fever. Splenomegaly. COMPARISON STUDY: Chest x-ray dated 06/04/2016. Chest CT scan dated 12/19/2015. Abdominal CT dated 11/13/2015 and PET/CT dated 12/05/2011. TECHNIQUE: CT scan of the chest, abdomen, and pelvis was performed from the thoracic inlet to the proximal femora. Images are reviewed in the axial, sagittal, and coronal planes. IV contrast was not administered as per the referring clinician. Note that the examination was performed in significantly suboptimal fashion without oral and IV contrast. Automated dose control exposure was utilized. CT DOSE: 931.98 mGy.cm FINDINGS: CHEST: Thyroid: Imaged portions of the thyroid gland are normal in size and attenuation. Thoracic aorta: There is mild atherosclerotic calcification of the thoracic aorta, which is normal in course and caliber. The aortic arch demonstrates standard 3-vessel anatomy. Heart: The heart is enlarged and without pericardial effusion. The coronary arteries are calcified. There is diminished attenuation of the cardiac blood pool as compared to the myocardium suggesting anemia. The pulmonary trunk is normal in caliber. Lungs and pleural spaces: There are small pleural effusions, right larger than left with bibasilar atelectasis. There is no airspace consolidation identified typical for pneumonia. Fluid/secretions are present within the lower lobe airways bilaterally. The trachea is clear. Mediastinum: There is no mediastinal lymphadenopathy. Verónica: Not well assessed without IV contrast. Axillae: There is no axillary lymphadenopathy. Bony thorax: The skeletal structures are osteopenic. Degenerative changes noted in the thoracic spine and shoulders. No lytic or blastic lesions are identified. ABDOMEN AND PELVIS: Liver: The unenhanced liver is normal in size, contour, and attenuation. There is no intrahepatic or ductal dilatation. Gallbladder: There are numerous calcified gallstones. There is no CT evidence of cholecystitis. Spleen: The spleen is enlarged measuring 15.6 cm in length. Pancreas: The unenhanced pancreas is moderately atrophic and grossly unremarkable. Adrenal glands: Unremarkable. Kidneys: The unenhanced kidneys demonstrate cortical atrophy and are without hydronephrosis. There is left-sided perinephric stranding and trace fluid, asymmetric to the right. There are 2 nonobstructing left renal calculi measuring up to 4 mm. There are 2 nonobstructing right renal calculi measuring up to 10 mm. There is no evidence of contour deforming renal mass. Abdominal vasculature: The abdominal aorta is normal in course and caliber noting mild to moderate atherosclerotic calcification. Stomach and bowel: There is a small hiatal hernia. The stomach and duodenum otherwise normal in configuration. No bowel obstruction is seen. There is moderate to advanced diverticulosis of the left colon without CT evidence of acute diverticulitis. There is mild colonic fecal retention. The appendix is well-visualized and normal. A metallic foreign body is noted within the appendiceal tip on axial image #255. Peritoneum: There is no intraperitoneal free air or abdominal ascites. Lymphadenopathy: None. Pelvic viscera: Evaluation of the pelvis is degraded by streak artifact from a right hip arthroplasty. A Reveles catheter is in place. The bladder is partially decompressed. Foci of intraluminal gas are likely related to instrumentation. The prostate gland appears mildly enlarged and heterogeneous. Numerous large calcified phleboliths are seen in the pelvis. Skeletal structures: The skeletal structures are osteopenic. There is moderate lumbosacral spondylosis. No lytic or blastic lesions are seen. A right hip arthroplasty is in place. There are healed right pubic ring fractures. Degenerative sclerosis is seen involving the pubic symphysis. IMPRESSION: 1. Significantly suboptimal examination without oral and IV contrast. 2. Cardiomegaly with evidence of anemia. 3. There are small pleural effusions, right larger than left with bibasilar atelectasis. There is no airspace consolidation typical for pneumonia. 4. Fluid/secretions are present within the lower lobe airways. Cortical clinically for evidence of aspiration. 5. Cholelithiasis without CT evidence of acute cholecystitis. 6. There are bilateral nonobstructing renal calculi. No ureteral stone is identified and there is no hydronephrosis. 7. There is left-sided perinephric stranding and fluid which is asymmetric to the right. This could represent the sequelae of a recently passed kidney stone or possibly urinary tract infection/pyelonephritis. Correlation with clinical findings and urinalysis will be required. 8. The bladder is partially decompressed around a Reveles catheter. Foci of intraluminal gas are likely related to instrumentation. Again, correlation with clinical findings and urinalysis will be required. 9. Moderate to advanced diverticulosis of the left colon without CT evidence of acute diverticulitis. 10. Splenomegaly. 11. Additional findings as discussed above. Electronically signed by: Kevin Duncan M.D. 06/05/2016 7:51 PM
[2016-06-05] MEDS: TAMSULOSIN HCL 0.4 MG CAP PO SCH (20:23)
[2016-06-05] MEDS: METOPROLOL SUCC 25MG EXT REL TAB PO SCH (20:23)
[2016-06-06] VITALS (8 sets, daily range): BP systolic 139–148; BP diastolic 77–93; PULSE 66–80; TEMP 36.5–36.7; O2SAT 93–96
[2016-06-06] MEDS: LEVALBUTEROL 1.25MG/0.5ML NEB INH SCH ×2 (01:35→07:20)
[2016-06-06] MEDS: IPRATROPIUM BROMIDE NEB SOLN 0.02% 2.5 ML VIAL INH SCH ×2 (01:35→07:20)
[2016-06-06] MEDS: ALBUTEROL HFA 8 GM INHALER INH SCH ×4 (04:00→12:00)
[2016-06-06 07:59] LABS: HEMATOCRIT 28.8 % (42-52); MEAN CELL VOLUME 104.3 fL (80-100); MEAN CORPUSCULAR HEMOGLOBIN 32.2 pg (25-34); MEAN CORPUSCULAR HGB CONC 30.9 g/dl (32-36); MEAN PLATELET VOLUME 11.1 fL (7.4-10.4); PLATELET COUNT 69 K/uL (130-400); RED BLOOD COUNT 2.76 M/uL (4.7-6.1); WHITE BLOOD COUNT 102.89 K/uL (4.8-10.8)
[2016-06-06 08:20] LABS: BASO % 0.2 %; COMPLETE YES; ECHINOCYTES 1+; IG% 0.1 %; LYMPH % 97.4 %; LYMPH ABS # 100.21 K/uL (1.2-3.4); MONO % 0.9 %; NEUT % 1.4 %; SMUDGE CELLS PRESENT
[2016-06-06 08:26] LABS: BUN/CREATININE RATIO 13.9 (10-20); CALCIUM 8.1 mg/dl (8.5-10.1); CREATININE 1.2 mg/dl (0.60-1.40)
[2016-06-06 08:27] LABS: POTASSIUM 3.9 mmol/L (3.5-5.1)
[2016-06-06] MEDS: FLUOCINONIDE 0.05% OINT 15 GM TUBE EXT SCH (08:27)
[2016-06-06] MEDS: CARBAMIDE PEROXIDE 6.5% 15 ML BTL OT SCH (08:27)
[2016-06-06] MEDS: PANTOprazole SOD 40 MG TAB PO SCH (08:27)
[2016-06-06] MEDS: FINASTERIDE 5 MG TAB PO SCH (08:28)
[2016-06-06] MEDS: AMLODIPINE BESYLATE 5 MG TAB PO SCH (08:28)
[2016-06-06] MEDS: GUAIFENESIN 600 MG TABCR PO SCH (08:28)
[2016-06-06] MEDS: ACETAMINOPHEN 500 MG TAB PO SCH (08:29)
[2016-06-06] MEDS: ARTIFICIAL TEARS OP SOLN OP SCH ×4 (08:29→11:10)
[2016-06-06] MEDS: LEVOFLOXACIN 500 MG TAB PO SCH (10:53)
[2016-06-06] MEDS ORDERED: LVQ500 PO (11:00)
--- NOTE | 2016-06-06 11:03 | Discharge Instructions ---
Discharge Instructions Admission Reason for Admission: Febrile Illness Discharge Discharge Diagnosis / Problem: suspected pyelonephritis, CLL Discharge Goals Goal(s): Increase independence, Improve disease control, Learn about illness, Diagnostic testing, Therapeutic intervention Activity Recommendations Activity Limitations: resume your previous activity . Instructions / Follow-Up Instructions / Follow-Up complete antibiotics follow up Dr Garcia in 1-2 weeks Current Hospital Diet Patient's current hospital diet: Regular Diet Discharge Diet Recommended Diet: Regular Diet Pending Studies Studies pending at discharge: yes List of pending studies: peripheral smear Laboratory Results Last 24 Hours Test 06/06/16 07:22 White Blood Count 102.89 K/uL Red Blood Count 2.76 M/uL Hemoglobin 8.9 g/dL Hematocrit 28.8 % Mean Corpuscular Volume 104.3 fL Mean Corpuscular Hemoglobin 32.2 pg Mean Corpuscular Hemoglobin Concent 30.9 g/dl Platelet Count 69 K/uL Mean Platelet Volume 11.1 fL Neutrophils (%) (Auto) 1.4 % Lymphocytes (%) (Auto) 97.4 % Monocytes (%) (Auto) 0.9 % Eosinophils (%) (Auto) 0.0 % Basophils (%) (Auto) 0.2 % Neutrophils # (Auto) 1.49 K/uL Lymphocytes # (Auto) 100.21 K/uL Monocytes # (Auto) 0.90 K/uL Eosinophils # (Auto) 0.03 K/uL Basophils # (Auto) 0.20 K/uL RDW Standard Deviation 56.9 fL RDW Coefficient of Variation 15.5 % Immature Granulocyte % (Auto) 0.1 % Immature Granulocyte # (Auto) 0.06 K/uL Smudge Cells PRESENT Echinocytes 1+ Sodium Level 144 mmol/L Potassium Level 3.9 mmol/L Chloride Level 113 mmol/L Carbon Dioxide Level 22 mmol/L Anion Gap 9.0 mmol/L Blood Urea Nitrogen 17 mg/dl Creatinine 1.20 mg/dl Est Creatinine Clear Calc Drug Dose 55.7 ml/min Estimated GFR () 69.6 Estimated GFR (Non- 60.1 BUN/Creatinine Ratio 13.9 Random Glucose 92 mg/dl Calcium Level 8.1 mg/dl Medical Emergencies . Who to Call and When: Medical Emergencies: If at any time you feel your situation is an emergency, please call 911 immediately. . Non-Emergent Contact Non-Emergency issues call your: Primary Care Provider Call Non-Emergent contact if: you have a fever, your pain is not controlled . Past History Medical & Surgical History: (1) Pyelonephritis (2) CLL . "Provider Documentation" section prepared by Gavin Griffin. VTE Core Measure Inpt VTE Proph given/why not?: Unfractionated heparin SQ
--- NOTE | 2016-06-06 11:08 | Discharge Summary ---
Discharge Summary Admission Date: Jun 03, 2016 at 14:52 Discharge Date: Jun 06, 2016 Discharge Disposition: Home Principal Diagnosis: acute pyelonephritis, CLL Immunizations: Have You Had Influenza Vaccine: Yes Influenza Vaccine Date: Mar 05, 2007 History of Tetanus Vaccine?: Yes Tetanus Immunization Date: Jun 03, 2005 History of Pneumococcal: Yes Pneumococcal Date: May 27, 2005 History of Hepatitis B Vaccine: No Medication Reconciliation New Medications: Levofloxacin (Levofloxacin) 500 Mg Tab 500 MG PO DAILY@11, #10 TAB Continued Medications: Acetaminophen (Tylenol) 500 Mg Tab 1000 MG PO Q6HR, 0 Refills Albuterol Sulfate (Proair Respiclick) 108 Mcg/Act Aer 2 PUFFS PO Q4 Amlodipine (Norvasc) 10 Mg Tab 5 MG PO DAILY, TAB Atorvastatin (Lipitor) 40 Mg Tab 40 MG PO DAILY Cholecalciferol (Vitamin D3) 2,000 Unit Cap 1 CAP PO DAILY Cyanocobalamin (Cyanocobalamin) 1,000 Mcg/Ml Inj 1 ML INJ MONTHLY Diphenhydramine Hcl (Benadryl *) 25 Mg Tab 50 MG PO Q6HR Finasteride (Proscar) 5 Mg Tab 5 MG PO DAILY Fluocinonide 0.05% (Lidex 0.05%) Oint 1 APPLN TOP BID Ibrutinib (Imbruvica) 140 Mg Cap 3 TABS PO DAILY Metoprolol Succinate (Toprol Xl) 25 Mg Tabcr 25 MG PO HS, #30 TAB 5 Refills note larger dose Multivitamins/Minerals (Certavite/Antioxidants) 1 Tab Tab 1 TAB PO QAM for 30 Days, #30 TAB 1 Refill Omeprazole (Prilosec) 20 Mg Cap 20 MG PO DAILY, CAP Ondansetron Tab (Zofran) 8 Mg Tab 8 MG PO Q6 PRN for Nausea, TAB Tamsulosin Hcl (Flomax *) 0.4 Mg Cap 0.4 MG PO QPM TAKE 30 MINUTES AFTER DINNER. Discontinued Medications: Doxycycline Monohydrate (Monodox) 100 Mg Cap 200 MG PO DAILY, CAP Referrals At Discharge Follow up Referrals: Oncology/Hematology Referral - Within 2 Weeks with Graeme Garcia M.D. Physician Referral - Within 2 Weeks with Leanne Tracy [email or web address] Discharge Exam Review of Systems: Constitutional: No chills, No weakness ENT: No unusual epistaxis Respiratory: No sputum Cardiovascular: No orthopnea Abdomen: No nausea Genitourinary - Male: No hematuria Neurologic: No memory loss Endocrine: No fatigue Integumentary: No rash Physical Exam: General Appearance: WD/WN, no apparent distress Eyes: normal inspection, EOMI ENT: hearing grossly normal, pharynx normal Neck: supple, no JVD Respiratory/Chest: no respiratory distress Cardiovascular: regular rate, rhythm, no JVD Abdomen / GI: non tender, no organomegaly Extremities: normal inspection, normal capillary refill Neurologic/Psychiatric: normal mood/affect Skin: normal color Hospital Course This is a 71-year-old male here with chronic lymphocytic leukemia, who was essentially immunosuppressed with a febrile illness and a positive troponin. acute vs chronic Pyelopnephritis, no more fever >48 h, he was already given levofloxacin and blood cultures were obtained which were negative. continue levofloxacin orally for 10 more days, CXR is normal, no PNA, CT chest: no PNA CT abd: perinephric stranding stopped Tamiflu With the pancytopenia, this is definitely from his CLL. Do not employ DVT prevention because of his thrombocytopenia. consulted Dr Garcia, Dr Hopkins saw the patient and checked iron studies and did anemia workup, b12, folate etc Dr Hopkins recommended patient to follow up dr Garcia 1-2 weeks and restart his outpatient meds Regarding his chronic kidney disease, stage III and hypokalemia, creat improved with IVF, creat 1.3 stop IV hydration elevated troponins, not trending up, demand ischemia likely sec to above HX CLL, restart outpatient regimen as per oncologist on d/c DVT prevention is early ambulation at this time. For his cardiovascular disease, continue Toprol and Norvasc , Lipitor at this time. FULL Code d/c home, f/u PCP and Dr Garcia 2 weeks Total Time Spent: Greater than 30 minutes This includes examination of the patient, discharge planning, medication reconciliation, and communication with other providers. Discharge Instructions Please refer to the electronic Patient Visit Report (Discharge Instructions) for additional information. Additional Copies To Graeme Garcia M.D.
== END 2016-06-06 13:53 | disposition home or self-care (01) | DRG 690 ==
LOC: ENRESERVTM → ENRESERVDT → C.EDB 12:21 → C.2T 14:52 → C.MED 06-06 06:10
PROVIDERS: ADMIT Internal Medicine; ATTEND Hospitalist
DX: N10 Acute pyelonephritis (principal); C91.10 Chronic lymphocytic leukemia of B-cell type not having achieved remission; D61.818 Other pancytopenia; N40.0 Benign prostatic hyperplasia without lower urinary tract symptoms; Z86.718 Personal history of other venous thrombosis and embolism; D47.2 Monoclonal gammopathy; G20 Parkinson's disease; Z86.711 Personal history of pulmonary embolism; I10 Essential (primary) hypertension; N18.3 Chronic kidney disease, stage 3 (moderate); E87.6 Hypokalemia

== ENCOUNTER → 2016-07-07 | Outpatient (CLI) | payer OTHER ==
[~2016-07-07] MED LIST changes: +ALBU18002 PO; +CYNI1000 INJ; -DOXY100C76 PO; +IBRU1CAP PO; +LVQ500 PO; -MOME1AER5 INH
--- NOTE | 2016-07-07 13:41 | DIAGNOSTIC IMAGING REPORT ---
VIDEO SWALLOW HISTORY: Aspiration TECHNIQUE: Video fluoroscopic evaluation of swallowing was performed in the AP and lateral projections by the speech pathology staff. The patient is fed nectar-thick and thin liquid barium, a barium coated wafer, and barium pudding. FLUOROSCOPY TIME: 2.5 minutes. COMPARISON STUDY: 12/08/2009 FINDINGS: The patient was administered thin liquid barium. There was penetration and scant aspiration when swallowing with a teaspoon. When swallowing with a cup there was aspiration with a cough response. When swallowing with a chin tuck, there was no aspiration. The patient was then administered nectar thick liquids. There is penetration but no evidence of aspiration. The patient was administered pudding and there was no aspiration. The patient was administered a cracker with paste and there was no aspiration. Note is made of esophageal dysmotility. IMPRESSION: 1. Aspiration of thin liquids which resolved when performing a chin tuck maneuver. 2. Please see the speech pathologist report for detailed findings and recommendations. Electronically signed by: Durga Villa M.D. 07/07/2016 1:40 PM Dictated Date/Time: 07/07/2016 1:38 PM
--- NOTE | 2016-07-08 14:47 | SWALLOWING EVALUATION ---
HISTORY: This 71 year-old man was referred for a VFSS at [facility] in order to rule out aspiration. The patient reports that his doctor feels as though when he swallows, that things "go down the wrong tube". The patient has a PMH significant for CLL, acute bronchitis, fevers, and chest pain. His current diet is regular consistency. PROCEDURE: The patient was seen in the Radiology Department of [facility] for the VFSS. Cursory examination of the oral cavity revealed an upper denture, natural lowers in fair condition (molar missing). Movement of the articulators was wnl. The patient was seated upright on a stool and was viewed in the Anterior-Posterior (A-P) and Lateral planes. Volitional phonation exercises completed in the A-P plane revealed bilateral vocal fold movement and vocal intensity was noted to be low. In the lateral plane, the patient was given the following boluses: 1 tsp. thin liquid barium x 2, single swallow thin liquid barium self-presented from a cup x2 (one with a chin tuck), sequential swallows of thin liquid barium self-presented from a straw, 1 tsp. nectar-thick liquid barium, single swallow nectar-thick liquid barium self-presented from a cup, 1 tsp. barium pudding, and 1 club cracker with barium paste. The patient was then repositioned into the A-P plane and given the following boluses: 1 tsp. nectar-thick liquid barium and 1 tsp. barium pudding. RESULTS: Oral Stage: Lip closure was adequate. The patient was able to maintain a cohesive liquid bolus in the oral cavity upon command without lateral or posterior escape. Mastication was timely and efficient. Lingual motion for bolus transport was mildly slow. There was trace retention lining the oral cavity after the swallow. The initiation of the pharyngeal swallow was delayed, and triggered when the bolus head reached the laryngeal aspect of the epiglottis. Pharyngeal Stage: Soft palate elevation was complete. Laryngeal elevation revealed partial superior movement of the thyroid cartilage and partial approximation of the arytenoids to the epiglottic base. Anterior hyoid excursion was partially reduced. Epiglottic deflection was complete. Laryngeal vestibular closure was incomplete, with a narrow column of contrast being located in the vestibule at the height of the swallow. The pharyngeal stripping wave was present yet diminished. The opening to the pharyngoesophageal segment was partially reduced with distention and duration of the opening, with partial bolus flow obstruction. Tongue base retraction was reduced, with a narrow column of contrast being located between the tongue base and pharyngeal wall during the swallow. Mild residuals were located in the valleculae after the swallow. This patient presented with laryngeal penetration of thin liquids via teaspoon and straw. There was aspiration of thin below the vocal folds with a cup sip, which appeared to re-direct with use of a throat clear. When a chin tuck was used, there was trace laryngeal penetration without aspiration. Although not visualized during this study, it is suspected the patient may aspirate thin liquids from the spoon and straw inconsistently. Laryngeal penetration without aspiration was identified with nectar thick liquids. This is attributed to a delayed swallow reflex, incomplete hyolaryngeal elevation and excursion. There was no evidence of aspiration with the pudding or cracker. Esophageal Stage: In the lateral view, there was evidence of a prominent cricopharyngeus and cervical osteophytes. While present, they did not appear to impact bolus flow through the esophagus significantly. There was also evidence of esophageal retention in the mid to lower esophagus, suggestive of dysmotility. A liquid wash cleared some of this retention. SUMMARY/RECOMMENDATIONS: This patient presents with mild to moderate oral-pharyngeal dysphagia. The following is recommended: 1. Regular diet and thin liquids. 2. Aspiration precautions, NO straws. Stringent oral care (brushing teeth prior to each meal and before bed). 3. Safe swallow strategies: Small bites, small single sips of liquids. Use of throat clear and chin tuck with liquids (small sip, hold liquid in mouth, tuck chin to chest, swallow liquid while chin is down) for increased airway protection. 4. Follow up speech therapy for further education and straining on safe swallow strategies. Trial pharyngeal strengthening exercises for improved strength and reduce risk of aspiration. Should the patient have any worsening symptoms of aspiration (i.e., any episodes of repeat pneumonia, increased coughing, elevated temperatures), consideration of liquid modification to nectar thick may be indicated. A summary of the results and recommendations was discussed with the patient and his spouse (with patient permission) immediately after the study. Educated both with step by step directions on use of chin tuck. Both verbalized understanding. Thank you for referral of this patient. Please contact me at if any additional information is needed.
--- NOTE | 2016-07-12 12:44 | CODING QUERY MEDICAL NECESSITY ---
SUPPORTING DIAGNOSIS NEEDED A supporting diagnosis is required for the test/procedure performed on this patient in order for us to be reimbursed by the patient's insurance. Please provide a supporting diagnosis for the following test/procedure listed below next to the test name along with your signature. *If there is no additional diagnosis for this patient that would support the following test/procedure please document that below next to the test/procedure. Test(s)/Procedure(s) that require a supporting diagnosis: * VIDEO SWALLOW DIAGNOSIS: * DOS: 07/07/16 Provider Signature: Date: Thank you Basia Moser [facility] Information Management Once completed, please kindly fax back to [phone] For questions please call [phone]
== END | disposition home or self-care (01) ==
LOC: C.RAD 12:50
PROVIDERS: ATTEND Nurse Practitioner
DX: T17.908A Unspecified foreign body in respiratory tract, part unspecified causing other injury, initial encounter (principal); X58.XXXA Exposure to other specified factors, initial encounter

== ENCOUNTER → 2016-07-14 | Outpatient (CLI) | payer OTHER ==
[2016-07-14 13:09] LABS: ALT/SGPT 20 U/L (12-78); BLOOD UREA NITROGEN 22 mg/dl (7-18); BUN/CREATININE RATIO 13.2 (10-20); CALCIUM 8.7 mg/dl (8.5-10.1); CARBON DIOXIDE 26 mmol/L (21-32); CHLORIDE 109 mmol/L (98-107); CHOLESTEROL 101 mg/dl (0-200); GLUCOSE 92 mg/dl (70-99); POTASSIUM 4.2 mmol/L (3.5-5.1); SODIUM 143 mmol/L (136-145); TRIGLYCERIDES 147 mg/dl (0-150); VERY LOW DENSITY LIPOPROT CALC 29 mg/dl
[2016-07-14 13:12] LABS: ALB/GLOB RATIO 1.3 (0.9-2); ALKALINE PHOSPHATASE 73 U/L (45-117); AST/SGOT 16 U/L (15-37); CHOLESTEROL/HDL RATIO 3.2; HDL CHOLESTEROL 32 mg/dl; LDL CHOLESTEROL CALCULATED 40 mg/dl
== END | disposition home or self-care (01) ==
LOC: C.LABPVFM 10:05
PROVIDERS: ATTEND Nurse Practitioner
DX: E55.9 Vitamin D deficiency, unspecified (principal); E78.5 Hyperlipidemia, unspecified; I10 Essential (primary) hypertension

== ENCOUNTER → 2016-07-25 | Outpatient (CLI) | payer OTHER ==
[2016-07-25 18:04] LABS: BLOOD UREA NITROGEN 13 mg/dl (7-18); BUN/CREATININE RATIO 8.7 (10-20); CALCIUM 8.5 mg/dl (8.5-10.1); CARBON DIOXIDE 26 mmol/L (21-32); CHLORIDE 110 mmol/L (98-107); GLUCOSE 108 mg/dl (70-99); PHOSPHORUS 2.7 mg/dl (2.5-4.9); SODIUM 145 mmol/L (136-145)
== END | disposition home or self-care (01) ==
LOC: C.LABPVFM 11:40
PROVIDERS: ATTEND Nurse Practitioner
DX: N28.9 Disorder of kidney and ureter, unspecified (principal)